=== PATIENT | male | born 1950 | race Caucasian/White ===

== ENCOUNTER → 2017-03-25 | Outpatient (CLI) | payer OTHER ==
[~2017-03-25] MED LIST: KETO10TA PO; MULT-506 PO; NAPR1TAB9 PO; SIMV40TA2 PO; TRAM-453 PO
--- NOTE | 2017-03-25 08:32 | DIAGNOSTIC IMAGING REPORT ---
MRI THE RIGHT KNEE NO CONTRAST CLINICAL HISTORY: Medial right knee pain x6 months. COMPARISON STUDY: No previous studies for comparison. FINDINGS: Imaging was performed the sagittal, coronal, and axial planes. There are no areas of marrow replacement to indicate occult fracture or bone bruise. The patellar retinacular structures appear intact. The quadriceps and patellar tendons appear intact. Anterior and posterior cruciate ligaments appear intact. There is a small joint effusion. The medial and lateral collateral ligaments appear intact. No tears a lateral meniscus are visualized. There is a complex predominantly horizontal tear involving the posterior horn the medial meniscus. There is mild meniscal extrusion. IMPRESSION: Complex tear of the posterior horn of the medial meniscus Electronically signed by: Mayur Headley M.D. 03/25/2017 8:30 AM Dictated Date/Time: 03/25/2017 8:28 AM
== END | disposition home or self-care (01) ==
LOC: C.MRIBC 07:38
PROVIDERS: ATTEND Orthopaedic Surgery
DX: M25.561 Pain in right knee (principal)

== ENCOUNTER → 2017-04-02 | Day surgery (SDC) | payer OTHER ==
[2017-03-31 07:48] VITALS: Ht 172.7 cm; Wt 90.9 kg
[~2017-04-02] VITALS: Ht 172.7 cm; Wt 90.9 kg
[~2017-04-02] MED LIST changes: +CEFAZOLIN 2000 MG/60 ML D5W IV SCH; +DEXAMETHASONE SOD INJ 4 MG/ML VIAL ONE; +EpINEphrine INJ 1MG/ML AMP 1 MG/ML AMP ONE; +FENTANYL CITRATE INJ 50 MCG/1 ML 2 ML VIAL ONE; +KETOROLAC TROMETHAMINE 30 MG/ML VIAL ONE; +LACTATED RINGER'S 1000ML 1,000 ML IV SCH; +LIDOCAINE HCL 2% 2 ML VIAL (20MG/ML) ONE; +MIDAZOLAM HCL 1 MG/ML 2ML VIAL ONE; +ONDANSETRON INJ 2 MG/ML 2 ML VIAL ONE; +PROPOFOL IV EMULSION 10 MG/ML 20 ML VIAL IV ONE; +ROPIVACAINE 0.5% 5 MG/ML 30 ML VIAL ONE; +SODIUM CHLORIDE 0.9% 1000ML 1,000 ML IV SCH; +TRAMADOL HCL 50 MG TAB PO PRN
--- NOTE | 2017-04-02 06:57 | History & Physical Bridge - SC ---
H&P Re-Evaluation Bridge Note: I have examined the patient, reviewed the History & Physical and in the interval since the performance of the History & Physical I have noted the following changes of clinical significance: No changes noted
--- NOTE | 2017-04-02 07:49 | [facility] Post Operative Brief Note ---
Immediate Operative Summary Operative Date Apr 02, 2017. 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
--- NOTE | 2017-04-02 07:50 | Discharge Instructions-SurgCtr ---
Discharge Instructions Date of Service Apr 02, 2017. Visit Reason for Visit: Tear Of Meniscus Of Right Knee Discharge Discharge Diagnosis / Problem: RIGHT KNEE MEDIAL MENISCUS TEAR, DJD Discharge Goals Goal(s): Decrease discomfort, Improve function, Therapeutic intervention Activity Recommendations Activity Limitations: per Instructions/Follow-up section Weightbearing Status: Right weightbearing (as tolerated) Anesthesia . Post Anesthesia Instructions: If you have had General Anesthesia or IV Sedation: * Do not drive today. * Resume driving when surgeon permits. * Do not make important decisions or sign legal documents today. * Call surgeon for: 1. Temperature elevations greater than 101 degrees F. 2. Uncontrollable pain. 3. Excessive bleeding. 4. Persistent nausea and vomiting. 5. Medication intolerance (nausea, vomiting or rash). * For nausea and vomiting use only clear liquids such as: tea, soda, bouillon until nausea subsides, then gradually increase diet as tolerated. * If you have any concerns or questions, call your surgeon's office. If physician is unavailable and it is an emergency, call 911 or go to the nearest emergency room. . Instructions / Follow-Up Instructions / Follow-Up MEDICATIONS: * Resume previous medications unless instructed otherwise by your surgeon. * Always take pain medication on a full stomach or with food to avoid upset stomach. * Do not drink alcohol or drive while taking narcotics. * Ibuprofen or Tylenol may be taken if narcotic not needed. NO IBUPROFEN WHILE TAKING TORADOL SPECIAL CARE INSTRUCTIONS: __ None _X_ Keep extremity elevated and iced x 48 hours; apply ice 20-30 minutes 8-10 times/day. May remove at night. __ Crutches __ May discard when able __ Brace/Post-op shoe __ 24 hrs/day __ Remove at night _X_ Dressing __ Maintain until seen in office, may shower with plastic over site _X_ Remove dressings in 24-48 hours and then may shower _X_ Cover incisions with band-aids after showering __ Do not remove steri-strips Call physician if chills or temperature rises above 102 degrees or pain unrelieved by prescribed pain medications. Office [phone] FOLLOW UP IN 2 WEEKS Diet Recommendations Home Diet: resume previous diet Procedures Procedures Performed: Right Knee Arthroscopy, Partial Medial Meniscectomy, Chondroplasty Pending Studies Studies pending at discharge: no Medical Emergencies . Who to Call and When: Medical Emergencies: If at any time you feel your situation is an emergency, please call 911 immediately. . Non-Emergent Contact Non-Emergency issues call your: Surgeon . . "Provider Documentation" section prepared by Ramsey Almaraz. .
[2017-04-02 08:21] VITALS: TEMP 36.6
[2017-04-02 08:46] VITALS: BP 156/83; PULSE 55; O2SAT 97
--- NOTE | 2017-04-02 09:02 | Anesthesiology Progress Note ---
Anesthesia Post Op Note Date & Time Apr 02, 2017 at 09:02 Vital Signs Pain Intensity: 0 Vital Signs Past 12 Hours Date Time Temp Pulse Resp B/P (MAP) Pulse Ox O2 Delivery O2 Flow Rate FiO2 04/02/17 08:46 55 16 156/83 (107) 97 Room Air 04/02/17 08:21 36.6 53 16 151/78 (102) 97 Room Air 04/02/17 08:17 36.6 56 16 147/86 97 Room Air 04/02/17 08:11 58 21 04/02/17 08:11 58 21 97 04/02/17 08:10 157/87 04/02/17 08:06 61 13 04/02/17 08:06 60 13 97 04/02/17 08:05 59 14 142/84 96 04/02/17 08:05 61 14 04/02/17 08:00 59 15 143/91 99 04/02/17 08:00 59 15 04/02/17 07:55 59 14 04/02/17 07:55 59 14 153/80 97 04/02/17 07:50 59 15 04/02/17 07:50 36.6 56 16 147/82 98 Mask 6 04/02/17 07:50 57 15 147/82 99 04/02/17 06:26 36.7 56 18 159/91 (113) 100 Room Air Notes Mental Status: alert / awake / arousable, participated in evaluation Pt Amnestic to Procedure: Yes Nausea / Vomiting: adequately controlled Pain: adequately controlled Airway Patency, RR, SpO2: stable & adequate BP & HR: stable & adequate Hydration State: stable & adequate Anesthetic Complications: no major complications apparent
--- NOTE | 2017-04-02 10:13 | OPERATIVE REPORT ---
DATE OF OPERATION: 04/02/2017 SURGEON: Josep Sr MD. ADJUNCT SOCIOLOGY PROFESSOR: DUSTIN De Souza. PREOPERATIVE DIAGNOSES: 1. Right knee degenerative medial meniscus tear. 2. Right knee medial compartment degenerative joint disease. POSTOPERATIVE DIAGNOSES: Same. PROCEDURES PERFORMED: 1. Right knee exam under anesthesia. 2. Right knee diagnostic arthroscopy. 3. Right knee arthroscopic partial medial meniscectomy. 4. Right knee chondroplasty medial femoral condyle. COMPLICATIONS: None. ESTIMATED BLOOD LOSS: Minimal. TOURNIQUET TIME: 23 minutes at 300 mmHg. ANESTHESIA: General. SPECIMENS: None. OPERATIVE INDICATIONS: The patient is a 66-year-old very active gentleman who has had about a 6-month history of right medial knee pain and discomfort. He was treated conservatively without any significant relief. He continued to have intermittent pain, discomfort, mechanical symptoms and swelling. MRI revealed a degenerative medial meniscus tear. Some slight edema in the medial tibial plateau. The patient failed conservative treatment and elected to proceed with operative intervention. OPERATIVE FINDINGS: Examination under anesthesia of the right knee revealed just a trace knee effusion. He had a slight varus deformity to his knee. His range of motion was 0-125. His knee was a little stiff with flexion. No clinical instability. Irving's was negative for mechanical symptoms. ARTHROSCOPIC FINDINGS: Arthroscopic findings revealed just a small knee effusion. He had some diffuse grade 2 changes of the patellofemoral joint, fairly mild. In the intercondylar notch, the ACL and PCL were intact. In the medial compartment, he had some grade 2 changes of the medial femoral condyle and just a little bit more extensive in focal areas. He had degenerative posterior horn of the medial meniscus tear. In the lateral compartment, the articular surface and meniscus were well preserved. OPERATIVE PROCEDURE: The patient taken to the operating room, identified and placed on the operating table in supine position. All contact areas were appropriately padded. IV antibiotics provided by anesthesia team. A general anesthetic was implemented by anesthesia team. Right thigh tourniquet was then placed and the right lower extremity was then prepped and draped in usual sterile fashion. The right leg was elevated and exsanguinated with Esmarch and tourniquet was placed at 300 mmHg. Routine right knee arthroscopy was then performed through typical anteromedial and anterolateral portals. Superolateral outflow portal was established for outflow. With the use of motorized and hand-controlled instruments, partial medial meniscectomy was then performed. I resected the entire torn piece of the medial meniscus. There was a fairly extensive degenerative tear at its apex. We saucerized out the anterior and posterior components to this. The shaver was then used to debride the loose cartilage at the end of medial femoral condyle. Once this was complete, the arthroscopic instruments were placed throughout the knee joint. All extraneous debris was removed. The arthroscopic instruments were then removed from the joint and the portals were closed with 3-0 Prolene suture in a simple fashion. The knee was then cleaned and dried, and a sterile dressing of Xeroform, 4 x 4's, sterile cast padding and an Dale bandage was applied. The tourniquet was then let down for a tourniquet time of 23 minutes. The patient then brought out of general anesthesia and transferred to the recovery room in stable condition. The patient tolerated the procedure well and no complications. All needle and sponge counts were correct at the end of the operation. I attest to the content of the Intraoperative Record and any orders documented therein. Any exception s are noted below.
== END | disposition home or self-care (01) ==
LOC: X.SURG 06:08
PROVIDERS: ATTEND Orthopaedic Surgery Sports Medicine
DX: M23.221 Derangement of posterior horn of medial meniscus due to old tear or injury, right knee (principal)

== ENCOUNTER 2019-02-07 22:32 | Inpatient (IN) ==
[2019-02-07] MEDS ORDERED: cefTRIAXone SODIUM 2,000 MG in DEXTROSE 5% 50 ML IV STA (22:46)
[2019-02-07] MEDS ORDERED: VANCOMYCIN CONSULT ACTIVE PRN (22:46)
[2019-02-07] MEDS ORDERED: VANCOMYCIN HCL 1,750 MG in SODIUM CHLORIDE 0.9% 500 ML IV ONE (22:46)
[2019-02-07] MEDS ORDERED: SODIUM CHLORIDE 0.9% 1000ML 1,000 ML IV ONE (22:49)
[2019-02-07 23:17] LABS: Basophils # (auto) 0.03 K/uL (0-0.2); Basophils % (auto) 0.3 %; Eosinophils # (auto) 0.11 K/uL (0-0.5); Hematocrit (blood only) 33.9 % (42-52); Hemoglobin 11.9 g/dL (14.0-18.0); Immature Granulocytes # (auto) 0.03 K/uL (0.00-0.02); Immature Granulocytes % (auto) 0.3 %; Lymphocytes # (auto) 1.45 K/uL (1.2-3.4); Lymphocytes % (auto) 12.8 %; Mean Corpuscular Hgb Conc 35.1 g/dL (32-36); Mean Corpuscular Volume 94.4 fL (80-100); Mean Platelet Volume 9.3 fL (7.4-10.4); Monocytes # (auto) 1.15 K/uL (0.11-0.59); Monocytes % (auto) 10.1 %; Neutrophils # (auto) 8.57 K/uL (1.4-6.5); Neutrophils % (auto) 75.5 %; Platelet Count 207 K/uL (130-400); RDW Coefficient of Variation 12.4 % (11.5-14.5); RDW Standard Deviation 42.5 fL (36.4-46.3); Red Blood Count 3.59 M/uL (4.7-6.1); White Blood Count 11.34 K/uL (4.8-10.8)
[2019-02-07 23:32] LABS: Albumin Level 3.4 gm/dl (3.4-5.0); BUN Creatinine Ratio 24.4 (10-20); Est GFR (African American) 92.6; Est GFR (Non-African American) 79.9
[2019-02-07 23:35] LABS: Albumin Globulin Ratio 0.9 (0.9-2); Bilirubin,Total 0.4 mg/dl (0.2-1); Globulin 3.6 gm/dl (2.5-4.0); Partial Thromboplastin Ratio 1.1; Partial Thromboplastin Time 30.1 Seconds (21.0-31.0); Prothrombin Time 9.8 Seconds (9.0-12.0)
[2019-02-08] MEDS ORDERED: KETOROLAC TROMETHAMINE 15 MG/ML VIAL IV ONE (00:51)
[2019-02-08] MEDS ORDERED: KETOROLAC TROMETHAMINE 15 MG/ML VIAL ONE (01:01)
[2019-02-08] MEDS ORDERED: IOVERSOL 100ml IV PRN (01:25)
--- NOTE | 2019-02-08 01:49 | History & Physical Report ---
Date of Service February 08, 2019 Assessment & Plan (1) Supraglottitis: Possible abscesses, floor of the mouth on initial repeat soft tissue CT neck read No overt sepsis. No overt signs of airway obstruction for now. Steroid-induced hyperglycemia rule out DM Acute on chronic anemia, hemoglobin drop from baseline possibly dilutional following IVF administration from recent ER visit Ongoing tobacco abuse Medical telemetry monitoring (given potential for airway obstruction) Follow official soft tissue CT neck read Vancomycin for MRSA coverage for supraglottitis Zosyn for possible floor of the mouth abscesses ENT consultation Re: Supraglottitis, possible sublingual abscesses (ER provider already in touch with Dr. Goldberg.) Anemia work-up Check hemoglobin A1c Nicotine patch. DVT prophylaxis. Lovenox subcu Full code Patient's requesting updates from providers. Ms. Britni Lai, contact #[phone]. History of Present Illness Chief Complaint: Worsening sore throat Primary Care Provider: Ryan Schmidt MD History obtained from patient, family, and records. Medical history significant for hyperlipidemia, arthritis, ongoing tobacco abuse, chronic anemia (baseline hemoglobin of 13). 5 days history of sore throat, dysphagia symptoms. No chest pain, S OB, no fever, no chills no drooling, no toothache complaints. No known sick contacts. Patient seen at the ER last February 05. Initial soft tissue neck CT negative read. Strep test negative. Patient received Decadron at the ER. NSAIDs, Tylenol recommended for pharyngitis pain. Soft tissue neck CT from February 05 later officially read as: Thickened epiglottis with enlargement of the tonsillar tissues. Patent airway at this time. The findings represent a nonspecific infectious process and could be correlated with clinical evidence for epiglottitis. No abscess. Patient return to the ER for worsening sore throat, odynophagia. Voice more muffled as per patient's . Patient denies chest pain. Admits to some S OB, chills. Poor appetite. No noisy breathing at home. Usual smoker's cough symptoms. At the ER, patient received Vancomycin and Ceftriaxone for epiglottitis. 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 Verified 02/07/19 23:04 Home Medications Home Medications Medication Instructions Recorded Confirmed Type multivitamin [Multiple Vitamins] 1 tab PO DAILY 02/07/19 02/07/19 History simvastatin 40 mg PO PM 02/07/19 02/07/19 History Past Med/Surg History Social History Preferred Language: Grenadian Communication Ability: Effective Wire Twister Required: No Beliefs That Will Affect Care: None Current Living Situation: Spouse Feels Safe at Home: Yes Safety Concerns: Feels Safe At This Time Smoking Status: Current every day smoker Tobacco Type: cigarettes Cigarettes Per Day: 20 Hx Alcohol Use: Yes Alcohol type: beer Hx Substance Use: No Review of Systems Review of Systems: As per HPI, all 10 systems reviewed, all other ROS negative Physical Exam Physical Exam: GENERAL: Slightly uncomfortable, no respiratory distress, muffled voice, no stridor SKIN: Pallor , warm HEENT: pale palpebral conjunctivae, no ptosis, moist buccal mucosa, posterior pharyngeal wall not fully visualized due to tongue, no trismus NECK : Supple, minimal submandibular fullness/tenderness CHEST : CTA, no tenderness HEART : RRR, no obvious murmurs ABDOMEN: Some distention, nontender EXTREMITIES : No LE swelling/tenderness, no other conspicuous deformities noted NEUROLOGIC : Coherent, no facial asymmetry, no other gross focality Results & Data Vital Signs (Past 12 Hours) Vital Signs Temp Pulse Pulse Resp BP BP Pulse Ox 02/08/19 01:14 70 21 130/67 95 02/08/19 00:24 66 18 134/76 97 02/07/19 22:41 36.9 C 75 20 143/84 H 96 Laboratory Results Laboratory Results WBC 11.34 K/uL (4.8-10.8) H 02/07/19 23:05 RBC 3.59 M/uL (4.7-6.1) L 02/07/19 23:05 Hgb 11.9 g/dL (14.0-18.0) L 02/07/19 23:05 Hct 33.9 % (42-52) L 02/07/19 23:05 MCV 94.4 fL (80-100) 02/07/19 23:05 MCH 33.1 pg (25-34) 02/07/19 23:05 MCHC 35.1 g/dL (32-36) 02/07/19 23:05 RDW Std Deviation 42.5 fL (36.4-46.3) 02/07/19 23:05 RDW Coeff of Chris 12.4 % (11.5-14.5) 02/07/19 23:05 Plt Count 207 K/uL (130-400) 02/07/19 23:05 MPV 9.3 fL (7.4-10.4) 02/07/19 23:05 Immature Gran % (Auto) 0.3 % 02/07/19 23:05 Neut % (Auto) 75.5 % 02/07/19 23:05 Lymph % (Auto) 12.8 % 02/07/19 23:05 Mcdowell % (Auto) 10.1 % 02/07/19 23:05 Eos % (Auto) 1.0 % 02/07/19 23:05 Baso % (Auto) 0.3 % 02/07/19 23:05 Immature Gran # (Auto) 0.03 K/uL (0.00-0.02) H 02/07/19 23:05 Neut # (Auto) 8.57 K/uL (1.4-6.5) H 02/07/19 23:05 Lymph # (Auto) 1.45 K/uL (1.2-3.4) 02/07/19 23:05 Mcdowell # (Auto) 1.15 K/uL (0.11-0.59) H 02/07/19 23:05 Eos # (Auto) 0.11 K/uL (0-0.5) 02/07/19 23:05 Baso # (Auto) 0.03 K/uL (0-0.2) 02/07/19 23:05 PT 9.8 Seconds (9.0-12.0) 02/07/19 23:05 INR 1.0 (0.9-1.1) 02/07/19 23:05 APTT 30.1 Seconds (21.0-31.0) 02/07/19 23:05 PTT Ratio 1.1 02/07/19 23:05 Sodium 141 mmol/L (136-145) 02/07/19 23:05 Potassium 4.0 mmol/L (3.5-5.1) 02/07/19 23:05 Chloride 110 mmol/L (98-107) H 02/07/19 23:05 Carbon Dioxide 25 mmol/L (21-32) 02/07/19 23:05 Anion Gap 6.0 (3-11) 02/07/19 23:05 BUN 24 mg/dl (7-18) H 02/07/19 23:05 Creatinine 0.97 mg/dl (0.6-1.4) 02/07/19 23:05 Est Cr Clr Drug Dosing 79.0 ml/min 02/07/19 23:05 Est GFR ( Amer) 92.6 02/07/19 23:05 Est GFR (Non-Af Amer) 79.9 02/07/19 23:05 BUN/Creatinine Ratio 24.4 (10-20) H 02/07/19 23:05 Glucose 110 mg/dl (70-99) H 02/07/19 23:05 Lactate 0.8 mmol/L (0.4-2.0) 02/07/19 23:14 Calcium 9.0 mg/dl (8.5-10.1) 02/07/19 23:05 Total Bilirubin 0.4 mg/dl (0.2-1) 02/07/19 23:05 AST 16 U/L (15-37) 02/07/19 23:05 ALT 27 U/L (12-78) 02/07/19 23:05 Alkaline Phosphatase 84 U/L (45-117) 02/07/19 23:05 Total Protein 7.0 gm/dl (6.4-8.2) 02/07/19 23:05 Albumin 3.4 gm/dl (3.4-5.0) 02/07/19 23:05 Globulin 3.6 gm/dl (2.5-4.0) 02/07/19 23:05 Albumin/Globulin Ratio 0.9 (0.9-2) 02/07/19 23:05 TSH 5.620 uIu/ml (0.300-4.500) H 02/07/19 23:05 Diagnostic Findings Chest x-ray as per my interpretation: Elevated right hemidiaphragm, no infiltrate CT neck initial read: Multiple low-density areas with peripheral enhancement are present at the floor of the mouth measuring up to 1.6 cm, suspicious for multiple abscesses. No airway narrowing. Possible mild thickening of the epiglottis.
[2019-02-08] MEDS ORDERED: PROMETHAZINE HCL 12.5 MG in SODIUM CHLORIDE 0.9% 50 ML IV PRN (02:36)
[2019-02-08] MEDS ORDERED: ACETAMINOPHEN 325 MG TAB PO PRN (02:36)
[2019-02-08] MEDS ORDERED: KETOROLAC TROMETHAMINE 15 MG/ML VIAL IV PRN (02:36)
[2019-02-08] MEDS ORDERED: LACTATED RINGER'S 1,000 ML IV SCH (02:36)
[2019-02-08] MEDS ORDERED: PIPERACILL/TAZOBAC CONSULT ACTIVE PRN (02:53)
--- NOTE | 2019-02-08 03:19 | Emergency Department Note ---
History of Present Illness General Chief complaint: Sore Throat Stated complaint: TROUBLE SWALLOWING,SORE THROAT History of Present Illness Maximum Pain Intensity: 8 This 68-year-old presents to the ER complaining of severe sore throat Location: Throat Quality: Painful Severity: Severe Duration: Past few days Timing: Started a few days ago Context: Symptoms got worse and patient came in Modifying factors: better with nothing; worse with swallowing Patient was seen the other day by myself and had an extensive work-up in the [place] assistant radiologist read the CT scan of his neck is negative. His strep test is negative. This is over read by our radiologist and was concerned for possible epiglottitis. Patient came back as his symptoms got worse. Patient combines of subjective fever and chills, dysphagia and not feeling well. He is able to swallow. He states it is definitely more painful than the other day. Home Medications Home Medications Medication Instructions Recorded Confirmed Type multivitamin [Multiple Vitamins] 1 tab PO DAILY 02/07/19 02/07/19 History simvastatin 40 mg PO PM 02/07/19 02/07/19 History Allergies Allergy/AdvReac Type Severity Reaction Status Date / Time No Known Drug Allergies Allergy Unknown . Verified 02/07/19 23:04 Past Med/Surg History Social History Preferred Language: Khmer Communication Ability: Effective [employer] Required: No Beliefs That Will Affect Care: None Current Living Situation: Spouse Feels Safe at Home: Yes Safety Concerns: Feels Safe At This Time Smoking Status: Current every day smoker Tobacco Type: cigarettes Cigarettes Per Day: 20 Hx Alcohol Use: Yes Alcohol type: beer Hx Substance Use: No Review of Systems All systems reviewed & are unremarkable except as noted in HPI & below Physical Exam Vital Signs Vital Signs - 24 hr 02/07/19 22:41 02/08/19 00:24 02/08/19 01:14 Temperature 36.9 C Temperature Source Oral Sepsis Recent Fever Within 48 Hours No Sepsis Action Taken by Nursing No Action Required Pulse Rate 75 Pulse Rate [Bilateral] 66 70 Pulse Rhythm Regular Pulse Rhythm [Bilateral] Regular Regular Pulse Strength Normal Pulse Strength [Bilateral] Normal Normal Respiratory Rate 20 18 21 Respiratory Effort / Characteristics Non-Labored Spontaneous Non-Labored Spontaneous Non-Labored Spontaneous Respiratory Depth Normal Normal Normal Blood Pressure 143/84 H Blood Pressure [Left Arm] 134/76 130/67 Blood Pressure Mean 103 Blood Pressure Mean [Left Arm] 95 88 Blood Pressure Position Sitting Blood Pressure Position [Left Arm] Lying Sitting Pulse Oximetry 96 97 95 Oxygen Delivery Method Room Air Room Air Room Air VITALS: Vitals are noted on the nurse's note and reviewed by myself. Vital signs stable. GENERAL: White male with a hoarse voice maintaining his own secretions, in no acute distress, nondiaphoretic, well-developed well-nourished. SKIN: The skin was without rashes, erythema, edema, or bruising. There is no tenting of the skin. Capillary reflex less than 2 seconds. HEAD: Normocephalic atraumatic. EARS: External auditory canals clear, tympanic membranes pearly mena without erythema or effusion bilaterally. EYES: Pupils equal round and reactive to light and accommodation. Conjunctivae without injection, sclerae without icterus. Extraocular movements intact. NOSE: Patent, turbinates without inflammation or discharge. No sinus tenderness. MOUTH: Mucous membranes moist. Airway patent. Tongue does not deviate. Patient has extreme pain with trying to open up the mouth. I am only able to get 3 fingers in the mouth. I can only see part of the pharynx and part of the uvula. This appears slightly erythematous without visualized abscess. NECK: Supple without nuchal rigidity. Shotty anterior cervical lymphadenopathy. No thyromegaly. Cervical spine is nontender. No JVD. HEART: Regular rate and rhythm LUNGS: Clear to auscultation bilaterally without wheezes, rales or rhonchi. No retractions or accessory muscle use. ABDOMEN: Positive bowel sounds x 4. Normal tympanic percussion. Soft, nontender, without masses or organomegaly. Murry sign negative. No guarding or rebound tenderness. No CVA tenderness MUSCULOSKELETAL: No muscle atrophy, erythema, or edema noted. NEURO: Patient was alert and oriented to person place and time. Normal sensation to light and sharp touch. No focal neurological deficits. Course Administered Medications Discontinued Medications Ceftriaxone Sodium 2,000 mg/ (Dextrose) 70 mls @ 100 mls/hr IV NOW STA Stop: 02/07/19 23:27 Last Infusion: 02/08/19 01:05 Dose: 0 mls/hr Documented by: [id number] Admin: 02/08/19 00:23 Dose: 100 mls/hr Documented by: [id number] Vancomycin HCl 1,750 mg/ (Sodium Chloride) 535 mls @ 200 mls/hr IV NOW ONE; Protocol Stop: 02/08/19 01:26 Last Infusion: 02/08/19 02:29 Dose: 0 mls/hr Documented by: [id number] Admin: 02/07/19 23:48 Dose: 200 mls/hr Documented by: [id number] Sodium Chloride (Nss 1000ml) 1,000 mls @ 999 mls/hr IV .Q1H1M ONE Stop: 02/07/19 23:49 Last Infusion: 02/07/19 23:48 Dose: 0 mls/hr Documented by: [id number] Admin: 02/07/19 23:14 Dose: 999 mls/hr Documented by: [id number] Ioversol (Optiray 320 100ml) 100 ml IV ONCE PRN PRN Reason: Interaction Checking Stop: 02/12/19 01:24 Last Admin: 02/08/19 01:26 Dose: 92 ml Documented by: [id number] Ketorolac Tromethamine (Toradol) Confirm Administered Dose 15 mg .ROUTE .STK-MED ONE Stop: 02/08/19 01:02 Last Admin: 02/08/19 01:03 Dose: 15 mg Documented by: [id number] Medical Decision Making Medical Records Attestation: I reviewed the patient's medical records. Home Medications Current Medication List: was personally reviewed by me Laboratory Data Attestation: I reviewed the patient's lab results. Result diagrams: 02/07/19 23:05 02/07/19 23:05 Lab Results 02/07/19 02/07/19 02/07/19 Range/Units 23:05 23:05 23:05 WBC 11.34 H (4.8-10.8) K/uL RBC 3.59 L (4.7-6.1) M/uL Hgb 11.9 L (14.0-18.0) g/dL Hct 33.9 L (42-52) % MCV 94.4 (80-100) fL MCH 33.1 (25-34) pg MCHC 35.1 (32-36) g/dL RDW Std Deviation 42.5 (36.4-46.3) fL RDW Coeff of Chris 12.4 (11.5-14.5) % Plt Count 207 (130-400) K/uL MPV 9.3 (7.4-10.4) fL Immature Gran % (Auto) 0.3 % Neut % (Auto) 75.5 % Lymph % (Auto) 12.8 % [place] % (Auto) 10.1 % Eos % (Auto) 1.0 % Baso % (Auto) 0.3 % Immature Gran # (Auto) 0.03 H (0.00-0.02) K/uL Neut # (Auto) 8.57 H (1.4-6.5) K/uL Lymph # (Auto) 1.45 (1.2-3.4) K/uL [place] # (Auto) 1.15 H (0.11-0.59) K/uL Eos # (Auto) 0.11 (0-0.5) K/uL Baso # (Auto) 0.03 (0-0.2) K/uL PT 9.8 (9.0-12.0) Seconds INR 1.0 (0.9-1.1) APTT 30.1 (21.0-31.0) Seconds PTT Ratio 1.1 Sodium 141 (136-145) mmol/L Potassium 4.0 (3.5-5.1) mmol/L Chloride 110 H (98-107) mmol/L Carbon Dioxide 25 (21-32) mmol/L Anion Gap 6.0 (3-11) BUN 24 H (7-18) mg/dl Creatinine 0.97 (0.6-1.4) mg/dl Est Cr Clr Drug Dosing 79.0 ml/min Est GFR ( Amer) 92.6 Est GFR (Non-Af Amer) 79.9 BUN/Creatinine Ratio 24.4 H (10-20) Glucose 110 H (70-99) mg/dl Lactate (0.4-2.0) mmol/L Calcium 9.0 (8.5-10.1) mg/dl Total Bilirubin 0.4 (0.2-1) mg/dl AST 16 (15-37) U/L ALT 27 (12-78) U/L Alkaline Phosphatase 84 (45-117) U/L Total Protein 7.0 (6.4-8.2) gm/dl Albumin 3.4 (3.4-5.0) gm/dl Globulin 3.6 (2.5-4.0) gm/dl Albumin/Globulin Ratio 0.9 (0.9-2) TSH 5.620 H (0.300-4.500) uIu/ml 02/07/19 Range/Units 23:14 WBC (4.8-10.8) K/uL RBC (4.7-6.1) M/uL Hgb (14.0-18.0) g/dL Hct (42-52) % MCV (80-100) fL MCH (25-34) pg MCHC (32-36) g/dL RDW Std Deviation (36.4-46.3) fL RDW Coeff of Chris (11.5-14.5) % Plt Count (130-400) K/uL MPV (7.4-10.4) fL Immature Gran % (Auto) % Neut % (Auto) % Lymph % (Auto) % [place] % (Auto) % Eos % (Auto) % Baso % (Auto) % Immature Gran # (Auto) (0.00-0.02) K/uL Neut # (Auto) (1.4-6.5) K/uL Lymph # (Auto) (1.2-3.4) K/uL [place] # (Auto) (0.11-0.59) K/uL Eos # (Auto) (0-0.5) K/uL Baso # (Auto) (0-0.2) K/uL PT (9.0-12.0) Seconds INR (0.9-1.1) APTT (21.0-31.0) Seconds PTT Ratio Sodium (136-145) mmol/L Potassium (3.5-5.1) mmol/L Chloride (98-107) mmol/L Carbon Dioxide (21-32) mmol/L Anion Gap (3-11) BUN (7-18) mg/dl Creatinine (0.6-1.4) mg/dl Est Cr Clr Drug Dosing ml/min Est GFR ( Amer) Est GFR (Non-Af Amer) BUN/Creatinine Ratio (10-20) Glucose (70-99) mg/dl Lactate 0.8 (0.4-2.0) mmol/L Calcium (8.5-10.1) mg/dl Total Bilirubin (0.2-1) mg/dl AST (15-37) U/L ALT (12-78) U/L Alkaline Phosphatase (45-117) U/L Total Protein (6.4-8.2) gm/dl Albumin (3.4-5.0) gm/dl Globulin (2.5-4.0) gm/dl Albumin/Globulin Ratio (0.9-2) TSH (0.300-4.500) uIu/ml Imaging Data Attestation: I personally reviewed and interpreted this imaging study as follow s: MDM Narrative Prior records/ancillary studies reviewed. Triage Nursing notes reviewed. Additional history obtained from family. The patient's history was concerning for a sore throat. Differential diagnosis: Etiologies such as viral syndrome, tonsillitis, streptococcal pharyngitis, mononucleosis, peritonsillar abscess, retropharyngeal abscess, otitis, pneumonia, influenza, as well as others were entertained. ER treatment provided: Vancomycin, Rocephin IV On reassessment the patient felt better. Diagnostics interpreted by me: The labs revealed leukocytosis. [place] [address] / Director: Freddy Diamond M.D. Clinical Laboratory Report Name: SOFÍA CEBALLOS Acct: [id number] Status: [facility] ER : 1950 [facility] [place] Date: 02/05/19 Age: 68 Sex: M Dis Date: Loc: Emergency Department Spec: [id number] Collected: 02/05/19 Received: 02/05/[address]: Fouzia Khan ., PA-C Copy To: Timothy Laws MD Source: Throat OV Order: Ordered: Grp A Rapid Str Queries: Patient Test Result: Negative Did You Obtain a Positive Control Line? Y Was the Background Clear? Y Procedure Result Verified Site Streptococcus A Rapid Test Final 02/05/19 Specimen negative for Group A Beta Strep by rapid method. Culture report to follow. GRP A Strep Backup Culture Final 02/07/19 No beta strep isolated. Imaging studies: Chest x-ray with lung nodule seen in the right lung unchanged from prior without acute consolidation, pneumothorax or free air per my interpretation Neck x-ray with no visualized foreign body or thumbprint sign per my interpretation. [facility], [place] [phone] CT Scan Report Patient: SOFÍA CEBALLOS Date: 02/05/19 MR#: [id number]: [id number] Acct ID:[id number]: Date: 1950City Zip: [place] [address] Age: 68Location: ED Sex: M Room/Bed: Att Phy: Diagnosis: SORE THROAT, SWELLING Lisa Phy: Ryan Schmidt, MDService Date: 02/05/19 Fam Phy: Interpreting Phy: Ney Isidro MD Admit Phy: Ordering Phy: Fouzia Khan .JUANPABLO cc: ~ CT OF THE NECK WITH IV CONTRAST CLINICAL HISTORY: Severe dysphagia. COMPARISON STUDY: CT of the neck August 19, 2007. TECHNIQUE: Following IV administration of 94 mL of Optiray-320, helical axial images of the neck were obtained. Sagittal and coronal reconstructions were viewed. Automated exposure control was utilized for the study. A dose lowering technique was utilized adhering to the principles of ALARA. CT DOSE: 582.09 mGy.cm FINDINGS: Visualized portions of the intracranial contents are unremarkable. There is no abscess within the neck. No pathologically enlarged cervical lymph nodes are noted. The epiglottis is moderately thickened. The tonsillar tissues are also enlarged. The airways patent at this time. There is no soft tissue gas within the neck. No mass is present. Major vasculature of the neck is patent. No suspicious osseous lesions are noted. There is no cervical spine fracture. IMPRESSION: Thickened epiglottis with enlargement of the tonsillar tissues. Patent airway at this time. The findings represent a nonspecific infectious process and could be correlated with clinical evidence for epiglottitis. No abscess. Findings discussed with Dr. Grigsby at time of dictation. Electronically signed by: Ney Isidro M.D. 02/06/2019 8:17 AM Consultation: A consultation was placed with ENT, Dr. Pete and recommends medical admission. He agrees with the antibiotics. ENT will evaluate the patient in the morning. Consult was placed with Dr. Milan and will admit the patient. This appears to be consistent with concerns for possible epiglottitis. Patient was unable to fully open up his mouth. I did not attempt to put a tongue blade in there. I informed the patient of the CT findings from the other day. He states no one contacted him about the abnormalities. Patient is agreeable treatment plan of admission. He was started on broad-spectrum antibiotics. Blood cultures were placed. Medicine will admit the patient. By the evaluation outlined above emergent etiologies such as peritonsillar abscess, retropharyngeal abscess, otitis, pneumonia, meningitis, urinary tract infection, sepsis, bacteremia, as well as others were deemed relatively unlikely. The pt informed about the findings as listed above. All questions were answered and pleased with the treatment. Case reviewed with my attending The chart was completed utilizing RIGID Speech voice recognition software. Grammatical errors, random word insertions, pronoun errors, and incomplete sentences are an occassional consequence of this system due to software limitations, ambient noise, and hardware issues. Any formal questions or concerns about the content, text, or information contained within the body of this dictation should be directly addressed to the physician quality assistant for clarification. Impression & Plan Acute epiglottitis Discharge Plan Visit Data *Final* Discharge Date/Time: 02/08/19 02:14 Chief Complaint: Sore Throat Stated Complaint: TROUBLE SWALLOWING,SORE THROAT ED Provider: Timothy Laws ED Midlevel Provider: Fouzia Khan Discharge Problem: Acute epiglottitis Patient Disposition: Admitted As Inpatient Condition: Fair Discharge Instructions Interventions: ED Discharge Assessment Last Done: 02/08/19 02:14
[2019-02-08] MEDS ORDERED: PIPERACILLIN/TAZOBACTAM 4.5 GM/120 ML BAG IV ONE (03:30)
[2019-02-08 06:40] LABS: Basophils # (auto) 0.02 K/uL (0-0.2); Basophils % (auto) 0.2 %; Eosinophils # (auto) 0.06 K/uL (0-0.5); Eosinophils % (auto) 0.7 %; Hematocrit (blood only) 30.4 % (42-52); Hemoglobin 10.6 g/dL (14.0-18.0); Immature Granulocytes # (auto) 0.02 K/uL (0.00-0.02); Immature Granulocytes % (auto) 0.2 %; Lymphocytes # (auto) 1.18 K/uL (1.2-3.4); Lymphocytes % (auto) 13.1 %; Mean Corpuscular Hgb Conc 34.9 g/dL (32-36); Mean Corpuscular Volume 93.5 fL (80-100); Mean Platelet Volume 9.2 fL (7.4-10.4); Monocytes # (auto) 0.96 K/uL (0.11-0.59); Monocytes % (auto) 10.7 %; Neutrophils # (auto) 6.76 K/uL (1.4-6.5); Neutrophils % (auto) 75.1 %; Platelet Count 164 K/uL (130-400); RDW Coefficient of Variation 12.4 % (11.5-14.5); RDW Standard Deviation 42.8 fL (36.4-46.3); Red Blood Count 3.25 M/uL (4.7-6.1); Reticulocyte % 1.5 % (0.5-2.0); Reticulocytes # 0.05 10^6/uL (0.02-0.10)
--- NOTE | 2019-02-08 06:57 | XRay Report ---
XR soft tissue neck CLINICAL HISTORY: 68 years-old Male presenting with sepsis, dysphasia, concern for epiglottis. TECHNIQUE: Frontal and lateral views of the neck were obtained. COMPARISON: CT neck from 02/05/2019. FINDINGS: As on recent CT, there is significant thickening of the epiglottis. Thickening of the aryepiglottic f olds also noted. Effacement of the vallecula a may further indicate the presence of lingual tonsillar hyperplasia. No radiopaque foreign body. Degenerative changes of the cervical spine. No prevertebral soft tissue swelling. Lung apices grossly clear. IMPRESSION: Findings highly suspicious for epiglottitis. The report will be called/faxed according to standard departmental protocol. Electronically signed by: Freddy Esteban M.D. 02/08/2019 6:55 AM
--- NOTE | 2019-02-08 06:58 | XRay Report ---
XR chest 1V portable CLINICAL HISTORY: 68 years-old Male presenting with Sepsis. TECHNIQUE: PA view of the chest was obtained. COMPARISON: None. FINDINGS: Atherosclerosis of the aortic arch. Cardiac silhouette borderline enlarged. Few calcified granulomas suspected. Mildly coarsened lung markings. There may be mild hyperinflation. No other focal opacity. No pleural effusion or pneumothorax. Degenerative changes of the thoracic spine. Upper abdomen normal . IMPRESSION: 1. No acute cardiopulmonary disease. Electronically signed by: Freddy Esteban M.D. 02/08/2019 6:56 AM
[2019-02-08 07:09] LABS: Ferritin 241.7 ng/ml (8-388)
--- NOTE | 2019-02-08 07:25 | CT Scan Report ---
CT soft tissue neck w con CLINICAL HISTORY: 68 years-old Male presenting with worsening dysphagia, recent supraglottitis surger y. TECHNIQUE: Multidetector CT of the neck was performed after the administration of intravenous contras t. IV contrast: 92 mL of Optiray 320. One or more dose lowering techniques were used consistent with the principles of ALARA (as low as reasonably achievable), including automatic exposure control, mA o r kV adjustment to individual patient size, and/or use of iterative reconstruction. COMPARISON: 02/05/2019. CT DOSE (mGy.cm): The estimated cumulative dose is 770.27 mGy.cm. FINDINGS: Microbiology Lab Assistant topogram: The patient is edentulous. Significant thickening of the epiglottis and aryepiglottic folds with effacement of the vallecula a a nd piriform sinuses. Mild infiltration of the preepiglottic fat with interval development of multiple rim-enhancing somewhat poorly delineated fluid collections at the base of the tongue. The largest di screte collection measures approximately 1.7 cm. These collections do not extend below the mylohyoid muscles into the submandibular space. Few foci of gas are noted within the vasculature especially in the 70 to the region, most likely from injection technique. Mild effacement of the aerodigestive tract is a result of the epiglottic edema. This is noted to the greatest degree on series 3 image 259. Patent vasculature. Limited intracranial evaluation within normal limits. Trace mucosal thickening in maxillary sinuses. The orbits are normal. No lymphadenopathy. There may be trace infiltration along the right posterior lateral aspect of the trachea in the superi or mediastinum (series 3 image 349. The appearance may be due to transiting vasculature as the appear ance is somewhat similar to the prior exam. No infiltration of the more anterior or superior superior mediastinal fat. No fat infiltration along the carotid vasculature. No evidence of prevertebral lobo a in the neck. Lung apices are clear. Degenerative changes of the cervical spine. Atherosclerosis of the aortic arch . IMPRESSION: 1. Interval development of multiple rim-enhancing collections at the floor the mouth consistent with abscesses, the largest measuring 1.6 cm. These do not extend into the submandibular space. Presumabl y these emanate from infectious epiglottitis. 2. Mild airway narrowing greatest at the level of the epiglottis. 3. No convincing evidence of extension of infection/inflammation to the superior mediastinum at this time. Electronically signed by: Freddy Esteban M.D. 02/08/2019 7:23 AM
[2019-02-08 07:52] LABS: Estimated Average Glucose 100 mg/dl; Hemoglobin A1C 5.1 % (4.5-5.6)
[2019-02-08] MEDS: PIPERACILLIN/TAZOBACTAM 3.375 GM in DEXTROSE 5% 100 ML IV SCH ×3 (08:19→23:29)
[2019-02-08 09:00] LABS: Folate (Folic Acid) 15.24 ng/ml (>5.38)
[2019-02-08] MEDS: VANCOMYCIN HCL 1,500 MG in SODIUM CHLORIDE 0.9% 500 ML IV SCH ×3 (10:03→21:51)
[2019-02-08] MEDS: MULTIVITAMIN TAB PO SCH ×2 (10:04→10:14)
[2019-02-08] MEDS: ENOXAPARIN INJ 30 MG/0.3 ML SYR SQ SCH ×2 (10:04→10:13)
[2019-02-08] MEDS ORDERED: ACETAMINOPHEN 1,000 MG/100 ML VIAL IV ONE (10:15)
--- NOTE | 2019-02-08 10:41 | Pharmacy Report ---
Pharmacy Abx Dose Short Note - Date of Service February 08, 2019 - Assessment & Plan Assessment 68 year old M receiving Vancomycin/zosyn for treatment of epiglottitis Day # 1 of antimicrobial therapy. Plan Vancomycin * Loading dose: 1750mg X 1 (given 02/07 @ ~2348) followed by: * Maintenance dose of 1500 mg IV every 12 hours * Goal trough level : 15 to 20 mcg/mL * Trough or random level ordered for: 02/09/19 @ 0930 Pharmacy will continue to follow and will adjust dose/frequency as necessary. Thank you.
[2019-02-08] MEDS ORDERED: HYDROmorphone INJ 0.5 MG/0.5 ML SYR IV PRN (14:19)
[2019-02-08] MEDS ORDERED: D5W AND LACTATED RINGERS 1,000 ML IV SCH (14:30)
[2019-02-08] MEDS ORDERED: HYDROmorphone INJ 0.5 MG/0.5 ML SYR IV ONE (14:41)
[2019-02-08] MEDS: DEXAMETHASONE SOD PHOSPHATE 10 MG in SYRINGE 0 ML IV SCH ×2 (15:10→20:50)
--- NOTE | 2019-02-08 19:13 | Hospitalist Progress Note ---
Date of Service February 08, 2019 Assessment & Plan (1) Acute epiglottitis: CT suggests epiglottitis with suspected abscesses floor of mouth. Experiencing pain, muffled voice, difficulty swallowing. No stridor or SOB. Receiving IV vancomycin and piperacillin / tazobactam. Afebrile. White count has fallen from 11,340 to 9000. ENT consulted. They recommend addition of dexamethasone. (2) Anemia: Hemoglobin at time of admission 11.9, normocytic. Serum iron 16, TIBC 242, transferrin 191, ferritin 241, B12 515, folic acid 15. Follow. (3) Tobacco use: Encourage smoking cessation. (4) DVT prophylaxis: SQ enoxaparin. Ambulate. (5) Discharge planning issues: Anticipated discharge to home. Family Medicine follow-up with Dr. Schmidt. Subjective Recheck for epiglottitis. Patient seen in their room around 14:00. at bedside. Persistent severe pharyngitis and neck pain. Toradol and IV acetaminophen not effective. Trouble swallowing saliva. Muffled void. No stridor / SOB. No fever. Review of Systems: Constitutional- no fever. Cardiac- no chest pain. Pulmonary- no cough or SOB. GI- no nausea, vomiting, diarrhea, melena, hematochezia. - no urinary symptoms. Otherwise, as noted above. Physical Exam Constitutional: no acute distress ENMT: Mouth: + oropharynx abnormality (unable to visual posterior pharynx), + muffled voice and + edentulous submental tenderness Respiratory: no respiratory distress Auscultation: lungs clear to auscultation bilaterally Cardiovascular: Rate/Rhythm: regular rate and regular rhythm Heart Sounds: no gallop, no murmur and no cardiac rub Vessels: no JVD Extremities: no calf tenderness and no edema Gastrointestinal (Abdomen): normal bowel sounds, soft, nontender, no hepatosplenomegaly Skin: no rashes, warm and dry Psychiatric: Orientation: alert and oriented x 3 Results & Data Vital Signs (Past 12 Hours) Vital Signs Temp Pulse Pulse Resp BP Pulse Ox 02/08/19 15:03 37.0 C 81 20 126/68 93 02/08/19 11:17 37.2 C 59 L 18 115/70 96 02/08/19 07:07 36.8 C 64 20 128/66 97 02/08/19 07:00 64 Laboratory Results Laboratory Results - last 24 hr 02/07/19 02/07/19 02/07/19 23:05 23:05 23:05 WBC 11.34 H RBC 3.59 L Hgb 11.9 L Hct 33.9 L MCV 94.4 MCH 33.1 MCHC 35.1 RDW Std Deviation 42.5 RDW Coeff of Chris 12.4 Plt Count 207 MPV 9.3 Immature Gran % (Auto) 0.3 Neut % (Auto) 75.5 Lymph % (Auto) 12.8 [place] % (Auto) 10.1 Eos % (Auto) 1.0 Baso % (Auto) 0.3 Reticulocyte % (Auto) Immature Gran # (Auto) 0.03 H Neut # (Auto) 8.57 H Lymph # (Auto) 1.45 [place] # (Auto) 1.15 H Eos # (Auto) 0.11 Baso # (Auto) 0.03 Reticulocyte # PT 9.8 INR 1.0 APTT 30.1 PTT Ratio 1.1 Sodium 141 Potassium 4.0 Chloride 110 H Carbon Dioxide 25 Anion Gap 6.0 BUN 24 H Creatinine 0.97 Est Cr Clr Drug Dosing 79.0 Est GFR ( Amer) 92.6 Est GFR (Non-Af Amer) 79.9 BUN/Creatinine Ratio 24.4 H Glucose 110 H Estimat Average Glucose Hemoglobin A1c Lactate Calcium 9.0 Iron TIBC Transferrin Ferritin Total Bilirubin 0.4 AST 16 ALT 27 Alkaline Phosphatase 84 Total Protein 7.0 Albumin 3.4 Globulin 3.6 Albumin/Globulin Ratio 0.9 Vitamin B12 Folate TSH 5.620 H 02/07/19 02/08/19 02/08/19 23:14 06:29 06:29 WBC 9.00 RBC 3.25 L Hgb 10.6 L Hct 30.4 L MCV 93.5 MCH 32.6 MCHC 34.9 RDW Std Deviation 42.8 RDW Coeff of Chris 12.4 Plt Count 164 MPV 9.2 Immature Gran % (Auto) 0.2 Neut % (Auto) 75.1 Lymph % (Auto) 13.1 [place] % (Auto) 10.7 Eos % (Auto) 0.7 Baso % (Auto) 0.2 Reticulocyte % (Auto) 1.5 Immature Gran # (Auto) 0.02 Neut # (Auto) 6.76 H Lymph # (Auto) 1.18 L [place] # (Auto) 0.96 H Eos # (Auto) 0.06 Baso # (Auto) 0.02 Reticulocyte # 0.05 PT INR APTT PTT Ratio Sodium Potassium Chloride Carbon Dioxide Anion Gap BUN Creatinine Est Cr Clr Drug Dosing Est GFR ( Amer) Est GFR (Non-Af Amer) BUN/Creatinine Ratio Glucose Estimat Average Glucose 100 Hemoglobin A1c 5.1 Lactate 0.8 Calcium Iron TIBC Transferrin Ferritin Total Bilirubin AST ALT Alkaline Phosphatase Total Protein Albumin Globulin Albumin/Globulin Ratio Vitamin B12 Folate TSH 02/08/19 02/08/19 06:29 06:29 WBC RBC Hgb Hct MCV MCH MCHC RDW Std Deviation RDW Coeff of Chris Plt Count MPV Immature Gran % (Auto) Neut % (Auto) Lymph % (Auto) [place] % (Auto) Eos % (Auto) Baso % (Auto) Reticulocyte % (Auto) Immature Gran # (Auto) Neut # (Auto) Lymph # (Auto) [place] # (Auto) Eos # (Auto) Baso # (Auto) Reticulocyte # PT INR APTT PTT Ratio Sodium Potassium Chloride Carbon Dioxide Anion Gap BUN Creatinine Est Cr Clr Drug Dosing Est GFR ( Amer) Est GFR (Non-Af Amer) BUN/Creatinine Ratio Glucose Estimat Average Glucose Hemoglobin A1c Lactate Calcium Iron 16 L TIBC 242 L Transferrin 191 L Ferritin 241.7 Total Bilirubin AST ALT Alkaline Phosphatase Total Protein Albumin Globulin Albumin/Globulin Ratio Vitamin B12 515 Folate 15.24 TSH (1) Acute epiglottitis Airway obstruction: without obstruction Qualified Code(s): J05.10 - Acute epiglottitis without obstruction
--- NOTE | 2019-02-08 19:45 | ENT Consultation ---
Date of Consultation February 08, 2019 Assessment & Plan (1) Supraglottitis: This is really more of an extension from a lingual tonsillitis. i have spoken to the hospitalist, Christopher Milan, and I have made the following recommendations: 1) Start pureed diet. 2) Gargle with saline TID. 3) Continue with Zosyn and Vancomycin through Friday. 4) Consider additional administration of Decadron 10 mg IVP for worsening. 5) Arrange for patient to see me as an outpatient in [facility] in 3-4 weeks. ++++++++ CALL DR. SMITH OF [facility] FOR WORSENING. Present on Admission?: Yes History of Present Illness Reason for Consultation: Rule out epiglottits. Requesting Physician: Ulises Kuhn Attending Physician: Ulises Kuhn MD History of Present Illness Patient with history of sore throat times over a week. CT of neck done x 2. Asked to see patient to rule out abscess and need for immediate surgical intervention. Patient described greatest response to steroids. He denied being short of breath. Allergies Allergy/AdvReac Type Severity Reaction Status Date / Time No Known Drug Allergies Allergy Unknown . Verified 02/07/19 23:04 Home Medications Home Medications Medication Instructions Recorded Confirmed Type multivitamin [Multiple Vitamins] 1 tab PO DAILY 02/07/19 02/07/19 History simvastatin 40 mg PO PM 02/07/19 02/07/19 History Patient History Social History Preferred Language: Gambian Communication Ability: Effective Pack Changer Required: No Beliefs That Will Affect Care: None Current Living Situation: Spouse Feels Safe at Home: Yes Safety Concerns: Feels Safe At This Time Smoking Status: Current every day smoker Tobacco Type: cigarettes Cigarettes Per Day: 20 Hx Alcohol Use: Yes Alcohol type: beer Hx Substance Use: No Physical Exam Physical Exam: General: No stridor. Voice was strong with no hot potato voice and no hoarseness. I performed flexible fiberoptic laryngoscopy. Lingual tonsils were hypertrophied. Epiglottis was minimally enlarged. Glottis was widely patent with normal TVC mobility and appearance. Neck was soft to palpation. Results & Data Vital Signs (Past 12 Hours) Vital Signs Temp Pulse Pulse Resp BP Pulse Ox 02/08/19 16:00 56 L 02/08/19 15:03 37.0 C 81 20 126/68 93 02/08/19 11:17 37.2 C 59 L 18 115/70 96
[2019-02-08] MEDS: SIMVASTATIN 40 MG TAB PO SCH (20:50)
[2019-02-09] MEDS: DEXAMETHASONE SOD PHOSPHATE 10 MG in SYRINGE 0 ML IV SCH ×3 (03:09→15:50)
[2019-02-09] MEDS: PIPERACILLIN/TAZOBACTAM 3.375 GM in DEXTROSE 5% 100 ML IV SCH ×2 (08:30→17:04)
[2019-02-09] MEDS: ENOXAPARIN INJ 30 MG/0.3 ML SYR SQ SCH (08:32)
[2019-02-09] MEDS: MULTIVITAMIN TAB PO SCH (08:32)
[2019-02-09] MEDS ORDERED: VANCOMYCIN TROUGH ONE (09:30)
[2019-02-09 10:10] LABS: BUN Creatinine Ratio 15.5 (10-20); Calcium 9.2 mg/dl (8.5-10.1); Creatinine Clr Calc Pharmacy 74.8 ml/min; Est GFR (African American) 86.1; Est GFR (Non-African American) 74.3; Potassium 3.9 mmol/L (3.5-5.1)
--- NOTE | 2019-02-09 10:32 | Pharmacy Report ---
Pharmacy Abx Dose Short Note - Date of Service February 09, 2019 - Assessment & Plan Assessment 68 year old M receiving vancomycin/zosyn for treatment of Epiglottitis. Per ENT note, continue abx through Friday. Day # 2 of antimicrobial therapy. Plan Vancomycin * Trough level of 11.2 mcg/mL is slightly subtherapeutic. * Change to 1500 mg IV every 10 hours * Trough or random level ordered for: Re-order in 1-2 days based on continuation of therapy Pharmacy will continue to follow and will adjust dose/frequency as necessary. Thank you.
[2019-02-09] MEDS: VANCOMYCIN HCL 1,500 MG in SODIUM CHLORIDE 0.9% 500 ML IV SCH ×2 (10:42→20:46)
--- NOTE | 2019-02-09 16:34 | Hospitalist Progress Note ---
Date of Service February 09, 2019 Assessment & Plan (1) Supraglottitis: CT suggests epiglottitis with suspected abscesses floor of mouth. Experiencing pain, muffled voice, difficulty swallowing. No stridor or SOB. Receiving IV vancomycin and piperacillin / tazobactam. Afebrile. White count has fallen from 11,340 to 9000. ENT consulted. They recommend addition of dexamethasone. Nasopharyngoscopy demonstrated supraglottis, extension of lingual tonsillitis. Continue IV antibiotics. DC dexamethasone. Advance diet. (2) Anemia: Hemoglobin at time of admission 11.9, normocytic. Serum iron 16, TIBC 242, transferrin 191, ferritin 241, B12 515, folic acid 15. Follow. (3) Tobacco use: Encourage smoking cessation. (4) DVT prophylaxis: SQ enoxaparin. Ambulate. (5) Discharge planning issues: Anticipated discharge to home. Family Medicine follow-up with Dr. Schmidt. Subjective Recheck for ENT infection. Patient seen in their room around 11:20. Nasopharyngoscopy performed last evening by ENT. Noted to have supraglottis, extension form lingual tonsillitis. Feels much better today. Pain improved. No difficulty swallowing; tolerating soft diet. Muffled voice improved. No stridor / SOB. No fever. Review of Systems: Constitutional- no fever. Cardiac- no chest pain. Pulmonary- no cough or SOB. GI- no nausea, vomiting, diarrhea, melena, hematochezia. - no urinary symptoms. Otherwise, as noted above. Physical Exam Constitutional: no acute distress ENMT: Mouth: + oropharynx abnormality (unable to visual posterior pharynx), + muffled voice and + edentulous Respiratory: no respiratory distress Auscultation: lungs clear to auscultation bilaterally Cardiovascular: Rate/Rhythm: regular rate and regular rhythm Heart Sounds: no gallop, no murmur and no cardiac rub Vessels: no JVD Extremities: no calf tenderness and no edema Gastrointestinal (Abdomen): normal bowel sounds, soft, nontender, no hepatosplenomegaly Skin: no rashes, warm and dry Psychiatric: Orientation: alert and oriented x 3 Results & Data Vital Signs (Past 12 Hours) Vital Signs Temp Pulse Pulse Pulse Resp BP BP 02/09/19 15:30 36.8 C 56 L 20 117/62 02/09/19 12:29 36.4 C L 52 L 20 148/71 H 02/09/19 08:00 42 L 02/09/19 07:00 36.8 C 48 L 18 138/70 02/09/19 04:36 36.5 C 74 18 136/74 Pulse Ox 02/09/19 15:30 98 02/09/19 12:29 97 02/09/19 08:00 02/09/19 07:00 97 02/09/19 04:36 93 Laboratory Results Laboratory Results - last 24 hr 02/09/19 02/09/19 09:26 09:26 Sodium 140 Potassium 3.9 Chloride 110 H Carbon Dioxide 23 Anion Gap 7.0 BUN 16 Creatinine 1.03 Est Cr Clr Drug Dosing 74.8 Est GFR ( Amer) 86.1 Est GFR (Non-Af Amer) 74.3 BUN/Creatinine Ratio 15.5 Glucose 203 H Calcium 9.2 Vancomycin Trough 11.2
[2019-02-09] MEDS: SIMVASTATIN 40 MG TAB PO SCH (20:45)
[2019-02-10] MEDS: PIPERACILLIN/TAZOBACTAM 3.375 GM in DEXTROSE 5% 100 ML IV SCH (00:01)
[2019-02-10 05:45] LABS: Hematocrit (blood only) 30.4 % (42-52); Hemoglobin 10.6 g/dL (14.0-18.0)
[2019-02-10] MEDS: VANCOMYCIN HCL 1,500 MG in SODIUM CHLORIDE 0.9% 500 ML IV SCH (05:48)
[2019-02-10 06:20] LABS: BUN Creatinine Ratio 19.9 (10-20); Calcium 8.8 mg/dl (8.5-10.1); Creatinine Clr Calc Pharmacy 72.7 ml/min; Est GFR (African American) 83.2; Est GFR (Non-African American) 71.8; Potassium 3.7 mmol/L (3.5-5.1)
[2019-02-10] MEDS: MULTIVITAMIN TAB PO SCH (08:22)
[2019-02-10] MEDS: ENOXAPARIN INJ 30 MG/0.3 ML SYR SQ SCH (09:10)
--- NOTE | 2019-02-10 09:11 | Hospitalist Progress Note ---
Date of Service February 10, 2019 Assessment & Plan (1) Supraglottitis: CT suggested epiglottitis with suspected abscesses floor of mouth. Experienced pain, muffled voice, difficulty swallowing. No stridor or SOB. Received IV vancomycin and piperacillin / tazobactam. Afebrile. White count fell from 11,340 to 9000. ENT consulted. They recommend addition of dexamethasone. Nasopharyngoscopy demonstrated extension of lingual tonsillitis. Symptoms improved rapidly with IV antibiotics and dexamethasone. Dexamethasone discontinued. Diet advanced and tolerated. Discharge on amoxicillin / clavulanic acid to complete 10 day course of therapy. (2) Anemia: Hemoglobin at time of admission 11.9, normocytic. Serum iron 16, TIBC 242, transferrin 191, ferritin 241, B12 515, folic acid 15. Fecal occult blood ordered, but no specimen received. Hgb fell to 10.6 with IV fluids, then stabilized. Check stools for OB as outpatient. No GI symptoms. Should have colonoscopy if not recently done. Follow. (3) Tobacco use: Encouraged smoking cessation. Patient would like to try Chantix and was given Rx. Will need ongoing support / encouragement. (4) Diarrhea: Had loose stools this morning, but does not meet criteria for C diff testing. Advised to have PCP check stool for C diff if he has 3 or more loose stools / day. (5) DVT prophylaxis: SQ enoxaparin. Ambulating. (6) Discharge planning issues: Discharge to home. Family Medicine follow-up with Dr. Schmidt. ENT follow-up with Dr. Goldberg. Subjective Recheck for ENT infection. Patient seen in their room around 09:10. Feels much better. Ready to go home. No pharyngitis, neck pain, difficulty swallowing, stridor, SOB. Review of Systems: Constitutional- no fever. Cardiac- no chest pain. Pulmonary- no cough or SOB. GI- 2 loose stools; no nausea, vomiting, melena, hematochezia. - no urinary symptoms. Otherwise, as noted above. Physical Exam Constitutional: no acute distress ENMT: Mouth: + edentulous; no oropharynx abnormality Neck: no anterior neck swelling, no submandibular swelling and neck nontender Respiratory: no respiratory distress Auscultation: lungs clear to auscultation bilaterally Cardiovascular: Rate/Rhythm: regular rate and regular rhythm Heart Sounds: no gallop, no murmur and no cardiac rub Vessels: no JVD Extremities: no calf tenderness and no edema Gastrointestinal (Abdomen): normal bowel sounds, soft, nontender, no hepatosplenomegaly Skin: no rashes, warm and dry Psychiatric: Orientation: alert and oriented x 3 Lymphatic: no cervical lymphadenopathy Results & Data Vital Signs (Past 12 Hours) Vital Signs Temp Pulse Resp BP BP Pulse Ox 02/10/19 07:02 36.8 C 64 18 169/97 H 92 02/09/19 22:48 36.5 C 54 L 18 132/79 93 Laboratory Results Laboratory Results - last 24 hr 02/10/19 02/10/19 05:19 05:19 Hgb 10.6 L Hct 30.4 L Sodium 140 Potassium 3.7 Chloride 111 H Carbon Dioxide 24 Anion Gap 5.0 BUN 21 H Creatinine 1.06 Est Cr Clr Drug Dosing 72.7 Est GFR ( Amer) 83.2 Est GFR (Non-Af Amer) 71.8 BUN/Creatinine Ratio 19.9 Glucose 159 H Calcium 8.8
--- NOTE | 2019-02-10 10:42 | Discharge Summary ---
Date of Service Date of Admission: 02/08/19 Date of Discharge: 02/10/19 Admission HPI Per Admitting Provider History obtained from patient, family, and records. Medical history significant for hyperlipidemia, arthritis, ongoing tobacco abuse, chronic anemia (baseline hemoglobin of 13). 5 days history of sore throat, dysphagia symptoms. No chest pain, S OB, no fever, no chills no drooling, no toothache complaints. No known sick contacts. Patient seen at the ER last February 05. Initial soft tissue neck CT negative read. Strep test negative. Patient received Decadron at the ER. NSAIDs, Tylenol recommended for pharyngitis pain. Soft tissue neck CT from February 05 later officially read as: Thickened epiglottis with enlargement of the tonsillar tissues. Patent airway at this time. The findings represent a nonspecific infectious process and could be correlated with clinical evidence for epiglottitis. No abscess. Patient return to the ER for worsening sore throat, odynophagia. Voice more muffled as per patient's . Patient denies chest pain. Admits to some S OB, chills. Poor appetite. No noisy breathing at home. Usual smoker's cough symptoms. At the ER, patient received Vancomycin and Ceftriaxone for epiglottitis. Admission Exam Per Admitting Provider GENERAL: Slightly uncomfortable, no respiratory distress, muffled voice, no stridor SKIN: Pallor , warm HEENT: pale palpebral conjunctivae, no ptosis, moist buccal mucosa, posterior pharyngeal wall not fully visualized due to tongue, no trismus NECK : Supple, minimal submandibular fullness/tenderness CHEST : CTA, no tenderness HEART : RRR, no obvious murmurs ABDOMEN: Some distention, nontender EXTREMITIES : No LE swelling/tenderness, no other conspicuous deformities noted NEUROLOGIC : Coherent, no facial asymmetry, no other gross focality Principal Diagnosis supraglottitis / tonsillitis Discharge Data Allergies Allergy/AdvReac Type Severity Reaction Status Date / Time No Known Drug Allergies Allergy Unknown . Verified 02/07/19 23:04 Consultations 02/07/19 23:51 ED Decision to Admit Stat 02/08/19 02:36 Consult Otolaryngology (Head and Neck) Routine Ordered Studies 02/08/19 00:51 CT soft tissue neck w con Urgent Hospital Course (1) Supraglottitis: CT suggested epiglottitis with suspected abscesses floor of mouth. Experienced pain, muffled voice, difficulty swallowing. No stridor or SOB. Received IV vancomycin and piperacillin / tazobactam. Afebrile. White count fell from 11,340 to 9000. ENT consulted. They recommend addition of dexamethasone. Nasopharyngoscopy demonstrated extension of lingual tonsillitis. Symptoms improved rapidly with IV antibiotics and dexamethasone. Dexamethasone discontinued. Diet advanced and tolerated. Discharged on amoxicillin / clavulanic acid to complete 10 day course of therapy. (2) Anemia: Hemoglobin at time of admission 11.9, normocytic. Serum iron 16, TIBC 242, transferrin 191, ferritin 241, B12 515, folic acid 15. Fecal occult blood ordered, but no specimen received. Hgb fell to 10.6 with IV fluids, then stabilized. Check stools for OB as outpatient. No GI symptoms. Should have colonoscopy if not recently done. Follow. (3) Tobacco use: Encouraged smoking cessation. Patient would like to try Chantix and was given Rx. Will need ongoing support / encouragement. (4) Diarrhea: Had loose stools this morning, but does not meet criteria for C diff testing. Advised to have PCP check stool for C diff if he has 3 or more loose stools / day. (5) DVT prophylaxis: SQ enoxaparin. Ambulated. (6) Discharge planning issues: Discharged to home. Family Medicine follow-up with Dr. Schmidt. ENT follow-up with Dr. Goldberg. Total Time Total Time Spent Total Time Spent (In Minutes): 35 Discharge Plan Discharge Items Patient Disposition: Home - Self-Care Reason For Visit: sore throat Discharge Diagnosis: tonsillitis and infection around epiglottis Condition: Good Discharge Goals: Decrease discomfort and Improve disease control Activity: Resume your previous activity Non-emergency contact: Primary Care Provider, Hospitalist and Specialist Call non-emergency contact if: you have any medication questions, your symptoms worsen and you have a fever Follow-up/Referrals: Damon Goldberg MD [Surgeon] - (Please have Britni make appt for recheck in a few weeks.) Ryan Schmidt MD [Primary Care Provider] - (02/16/2019 11:20 AM Ryan Schmidt MD ) Diet: Heart Healthy Addtl Provider Instructions: MEDICATION CHANGES: Take amoxicillin / clavulanic acid (Augmentin) twice a day with food until gone. Take Chantix as instructed. Please ask Dr. Schmidt for refill. SUMMARY OF TEST RESULTS: Throat culture was negative. Blood cultures were negative. RECOMMENDATIONS FOR FOLLOW-UP: Please arrange for ENT follow-up with Dr. Goldberg. OTHER INSTRUCTIONS: Please quit smoking. Chantix can help. Please ask Dr. Schmidt for ongoing support / guidance. Antibiotics can cause diarrhea. Ask Dr. Schmidt to check stool sample for C diff if you have 3 or more loose stools / day. Seek medical attention if you have: * temperature above 101 * chest pain or trouble breathing * abdominal pain, nausea, vomiting * diarrhea, dark stools or bloody stools * any unanswered questions or concerns Call [phone] if symptoms are severe. Please take good care of yourself. Call if you have any questions or problems. My cell # is [phone]. You can also reach a [facility] hospitalist on duty at [facility] 24 hours a day by calling [phone]. Prescriptions: New amoxicillin-pot clavulanate 875-125 mg tablet 1 tab PO BIDM Qty: 16 RF: 0 Chantix Starting Month Box 0.5 mg (11)- 1 mg (42) tablets,dose pack See Rx Instructions .ROUTE .COMPLEX Qty: 53 RF: 0 Continued multivitamin [Multiple Vitamins] Tablet 1 tab PO DAILY RF: 0 simvastatin 40 mg Tablet 40 mg PO PM RF: 0 Visit Report Forms: Smoking Cessation Stand-Alone Forms: [facility] Discharge Orders: Discharge Order (Routine); Ordered 02/10/19 Ordered By: Ulises Kuhn Admission Data Admit Date/Time: 02/08/19 01:48 Attending Provider: Ulises Kuhn Admit Provider: Edy Milan Primary Care Provider: Ryan Schmidt Other Providers: Edy Milan ; Damon Goldberg ; Vlad Herrera Service: Telemetry Medical Other Interventions: Discharge Summary Assessment (RN) Last Done: 02/10/19 09:50 Pending Studies at Discharge: No DC Date/Time DO NOT enter until pt leaves facility: 02/10/19 10:11
== END 2019-02-10 10:11 | disposition home or self-care (01) | DRG 153 ==
LOC: ED 22:32 → 2N 02-08 01:48 → SUATTDRO 02-08 01:48 → 2N 02-08 02:14